=== PATIENT | male | born 1980 ===

== ENCOUNTER 2021-11-01 11:35 | Outpatient (CLI) | payer OTHER | END 2021-11-01 11:36 | disposition short-term general hospital (02) | LOC: EMS 11:35 | DX: S99.921A Unspecified injury of right foot, initial encounter (principal); S49.92XA Unspecified injury of left shoulder and upper arm, initial encounter; V09.09XA Pedestrian injured in nontraffic accident involving other motor vehicles, initial encounter; Y99.0 Civilian activity done for income or pay | CPT/HCPCS: A0425; A0429 ==